=== PATIENT | female | born 1945 | race Two or more races ===

== ENCOUNTER 2017-12-13 07:34 | Outpatient (CLI) | payer OTHER ==
[~2017-12-13 07:34] MED LIST: AGGRENOX CAP1 BOTTLE PO; ASPIRIN81 M1; AVAPRO300 MG; CADUET 5 MG/101 TAB PO; COZAAR100 MG PO; CRESTOR5 MG; LIPITOR20 MG PO; MECLIZINE HCL25 MG PO; METFORMIN HCL500 MG; METOPROLOL SUC100 MG; METOPROLOL TART50 MG PO; MUCINEX DM1 TAB.SR . PO; NASONEX17 GM NS; NEURONTIN; NORVASC2.5 M1; PLAVIX75 MG PO; PNEU16DI2; PROVENTIL HFA6.7 GM IH; SINGULAIR10 MG PO; SYNTHROID
== END 2017-12-13 15:57 | disposition home or self-care (01) ==
LOC: TOM 07:34
DX: R10.84 Generalized abdominal pain (principal)

== ENCOUNTER 2017-12-14 11:35 | Outpatient (CLI) | payer OTHER | END 2017-12-14 12:13 | disposition home or self-care (01) | LOC: RAD 501 11:35 | DX: M54.5 Low back pain (principal) ==

== ENCOUNTER 2018-02-17 12:08 | Outpatient (CLI) | payer OTHER | END 2018-02-17 12:33 | disposition home or self-care (01) | LOC: NUCLEAR 12:08 | DX: M81.0 Age-related osteoporosis without current pathological fracture (principal); M85.9 Disorder of bone density and structure, unspecified ==

== ENCOUNTER 2018-11-03 09:56 | Outpatient (CLI) | payer OTHER ==
[~2018-11-03] VITALS: Ht 121.9 cm; Wt 56.7 kg
== END 2018-11-03 10:15 | disposition home or self-care (01) ==
LOC: OFIC 805 09:56
DX: R42 Dizziness and giddiness (principal); M62.830 Muscle spasm of back

== ENCOUNTER 2019-03-02 10:09 | Outpatient (CLI) | payer OTHER ==
[~2019-03-02] VITALS: Ht 121.9 cm; Wt 54.4 kg
== END 2019-03-02 10:25 | disposition home or self-care (01) ==
LOC: OFIC 805 10:09
DX: J32.8 Other chronic sinusitis (principal); R42 Dizziness and giddiness; H81.43 Vertigo of central origin, bilateral

== ENCOUNTER 2021-04-28 08:31 | Outpatient (CLI) | payer OTHER | END 2021-04-28 08:42 | disposition home or self-care (01) | LOC: RAD 08:31 | PROVIDERS: ATTEND Orthopaedic Surgery | DX: M25.561 Pain in right knee (principal); M25.562 Pain in left knee ==

== ENCOUNTER 2021-04-28 10:44 | Outpatient (CLI) | payer OTHER | END 2021-04-28 10:46 | disposition home or self-care (01) | LOC: RAD 10:44 | PROVIDERS: ATTEND Orthopaedic Surgery | DX: M25.551 Pain in right hip (principal); M25.552 Pain in left hip ==

== ENCOUNTER 2021-11-30 08:55 | Outpatient (CLI) | payer OTHER | END 2021-11-30 09:05 | disposition home or self-care (01) | LOC: LAB 08:55 | PROVIDERS: ATTEND Orthopaedic Surgery | DX: D64.9 Anemia, unspecified (principal); E88.9 Metabolic disorder, unspecified; D68.8 Other specified coagulation defects; N39.0 Urinary tract infection, site not specified; E11.9 Type 2 diabetes mellitus without complications; A49.02 Methicillin resistant Staphylococcus aureus infection, unspecified site; Z76.89 Persons encountering health services in other specified circumstances; I49.9 Cardiac arrhythmia, unspecified; I10 Essential (primary) hypertension ==

== ENCOUNTER 2021-12-11 12:00 | Inpatient (IN) | payer OTHER ==
[~2021-12-11] VITALS: Ht 144.8 cm; Wt 56.2 kg
[2021-12-14] MEDS ORDERED: SYNTHROID75 MCG (09:00)
[2021-12-14] MEDS ORDERED: GABAPENTIN100 M2 (09:00)
== END 2021-12-17 00:34 | disposition home or self-care (01) | DRG 470 ==
LOC: O/R 12-14 08:35 → SURH 12-14 08:35
PROVIDERS: ADMIT Orthopaedic Surgery; ATTEND Orthopaedic Surgery
PROC: 0SR90JZ Replacement of Right Hip Joint with Synthetic Substitute, Open Approach (ICD-10-PCS; principal; 2021-12-14 09:15)
DX: M16.11 Unilateral primary osteoarthritis, right hip (principal); I10 Essential (primary) hypertension; E03.8 Other specified hypothyroidism; Z20.822 Contact with and (suspected) exposure to COVID-19

== ENCOUNTER 2022-11-05 12:29 | Outpatient (CLI) | payer OTHER ==
[~2022-11-05 12:29] MED LIST changes: +GABAPENTIN100 M2; +SYNTHROID75 MCG
== END 2022-11-05 12:33 | disposition home or self-care (01) ==
LOC: NUCLEAR 12:29
PROVIDERS: ATTEND Orthopaedic Surgery
DX: M81.0 Age-related osteoporosis without current pathological fracture (principal)

== ENCOUNTER 2023-09-26 07:35 | Outpatient (CLI) | payer OTHER | END 2023-09-26 07:57 | disposition home or self-care (01) | LOC: RX STUDY 07:35 | PROVIDERS: ATTEND Internal Medicine | DX: R13.10 Dysphagia, unspecified (principal) ==